=== PATIENT | male | born 1945 | race Caucasian/White ===

== ENCOUNTER 2017-05-30 09:04 | Inpatient (IN) | payer MEDICARE ==
[~2017-05-30] VITALS: Ht 177.8 cm; Wt 74.0 kg
--- NOTE | ~2017-05-30 | HP ---
Unit #: [id number] #: [id number] Patient: DAVID CHRISTINE [id number] [address] [place], [place] [address] [id number] E MR#: [id number] NAME: DAVID CHRISTINE ROOM: Age: 71 Sex: M Admission Date: 05/30/2017 : 1945 Attending Physician: Mat Gallegos M.D. Primary Care Physician: Víctor Cast M.D. HISTORY AND PHYSICAL CHIEF COMPLAINT Fall and short of breath. HISTORY OF PRESENT ILLNESS The patient is a 71-year-old male with a past medical history of hypertension, hyperlipidemia, seizure disorder, and colon cancer, who presented to the emergency department for evaluation of the above. The patient states that he has not been feeling well for the past three to four days. He reports increasing shortness of breath and cough at baseline. He denies any fever, no chest pain, and no night sweats. He has lost more than 100 pounds in the past five years that he attributes to "eating better." He denies any vomiting or diarrhea. This morning, he states that he fell on his back porch. He initially thought that he "slipped." He landed on his right hip. He denies hitting his head and denies any loss of consciousness. He was unable to get up. In the emergency department, initial pulse and blood pressure were 87 and 89/53, respectively, and oxygen saturation was 93% on five liters. Multiple imaging studies were done and showed diffuse skeletal metastatic disease. There is also a lung mass concerning for possible metastatic disease. There is also a possible focal area of infection in the lung. He is being admitted to [facility] for evaluation and further treatment. PAST MEDICAL HISTORY 1. Hospitalized at [facility] about five years ago for colon cancer. He underwent partial colectomy. He did not have chemotherapy or radiation. 2. Prostate cancer is listed on the ER triage sheet. However, the patient denies. 3. Hypertension. 4. Hyperlipidemia. 5. Seizure disorder, maintained on Keppra. The patient states that his seizure was more than a year ago. PAST SURGICAL HISTORY 1. Partial colectomy for colon cancer. 2. Prostatectomy. Again, the patient is not clear on this part of his medical history. SOCIAL HISTORY The patient lives with his . He smokes a pack of cigarettes daily. He has a history of drinking 12-18 beers daily but states that he Unit #: [id number] #: [id number] Patient: DAVID CHRISTINE currently is drinking three to four beers daily with the last drink being two days prior to admission. He denies illicit drug use. He is retired from construction. He walks without assistance. His code status is a Full Code. FAMILY HISTORY Notable for his mother having lung cancer. ALLERGIES No known allergies. HOME MEDICATIONS 1. Zocor 20 mg at bedtime. 2. Naproxen 500 mg b.i.d. p.r.n. 3. Norvasc 10 mg daily. 4. Keppra 500 mg twice daily. 5. Aspirin 81 mg daily. REVIEW OF SYSTEMS A complete review of systems is negative except as indicated in the History of Present Illness. The patient denies ever being told he has heart failure. He denies ever having a heart attack or a stroke. He denies any blood in the stool or black tarry stool. PHYSICAL EXAMINATION VITAL SIGNS: Temperature is 97.9, pulse 87, respirations 16, blood pressure 89/53, and oxygen saturation is 93% on 5 liters. GENERAL: Patient is a cachectic, somewhat chronically ill-appearing male who is awake, alert, and in no acute distress. HEENT: Head is atraumatic. Dentition is poor. NECK: Supple. Trachea is midline. CARDIOVASCULAR: Regular rate and rhythm. LUNGS: A few scattered wheezes and crackles. Breathing is not labored. ABDOMEN: Soft and nontender with bowel sounds present in all four quadrants. EXTREMITIES: The right hip is tender to palpation. There is no pedal edema. NEUROLOGIC: Patient is oriented x3. He knows the year. He is unable to tell me the month. He states that he does not keep track of dates. PSYCHIATRIC: Mood and affect are normal. Patient is cooperative. SKIN: Skin of examined areas is warm and dry. DIAGNOSTIC STUDIES LABORATORY: Comprehensive metabolic panel notable for a sodium of 131, alkaline phosphatase 563, and albumin 3.3. Troponin is less than 0.05. INR is 1.1. Lactic acid is 1. Complete blood count notable for hemoglobin and hematocrit of 9.1 and 27.8, respectively, and platelets are 80,000. BNP is 47. CPK is 239. IMAGING: Pelvis x-ray shows sclerotic density over the left lesser trochanter measuring 4.4 cm with a smaller area over the right lesser trochanter concerning for metastatic disease. Sclerotic density in the left parasymphyseal region. Horizontal lucency in the medial right acetabulum. Fracture cannot be excluded. Chest x-ray shows new bilateral diffuse interstitial change with moderate left pleural effusion likely representing congestive heart failure. Possible spiculated density in the left upper lung. CT of the chest with contrast shows new moderate left pleural effusion and small right pleural effusion with right basilar Unit #: [id number] #: [id number] Patient: CHRISTINE,DAVID atelectasis. Left upper lobe shows airspace density concerning for pneumonia. There is also a 1.5 x 1.2 cm well-circumscribed soft tissue nodule in the medial superior segment, left lower lobe, concerning for infection versus metastatic or primary lung carcinoma. Diffuse emphysematous changes are noted. Sclerotic lesions and multiple compression deformities are noted in the thoracic spine concerning for diffuse metastatic disease to the bone. CT of the abdomen and pelvis shows no acute visceral abnormality in the abdomen or pelvis. Diffuse mottled mixed lucent and sclerotic change throughout all of the visualized bones of the lumbar spine, pelvis, and hips. The patient does have displaced fractures of the right superior and inferior pubic rami. There is wedging of the L1 vertebral body that could be pathologic and indeterminate in age. CT of the lumbar spine shows widely disseminated skeletal metastatic lesions. CT of the thoracic spine shows sclerosis and lucency throughout the visualized skeleton concerning for metastatic disease. ASSESSMENT The patient is a 71-year-old male with: 1. Lung mass concerning for pneumonia versus metastatic disease. 2. Diffuse skeletal metastatic disease. 3. Fractures of the right superior and inferior pubic rami. 4. Compression fractures of the thoracic spine. 5. Bilateral pleural effusions. The patient denies any history of congestive heart failure. BNP is 47. 6. Chronic obstructive pulmonary disease with continued tobacco abuse. 7. Hyponatremia. The patient's sodium is 131. It has been as low as 126 on June 10, 2014. 8. Hypertension. The patient's blood pressure has been running in the 90s systolic in the emergency department. It is currently 102/63. 9. Hyperlipidemia. 10. Normocytic anemia. The patient's hemoglobin is 9.1 today. It has previously been normal. He denies any blood in the stool or black tarry stool. 11. Thrombocytopenia. The patient's platelet count is 80,000. It has previously been normal. 12. History of colon cancer, status post partial colectomy. 13. Alcohol abuse with history of drinking 12-18 beers daily. The patient states that he currently drinks three to four beers daily with last drink being two days prior to admission. 14. Tobacco abuse. 15. Seizure disorder maintained on Keppra with last seizure being more than a year ago. 16. Mildly elevated CPK (239). 17. Elevated alkaline phosphatase likely related to skeletal metastasis. PLAN 1. Admit to intermediate level. 2. Regular diet if passes bedside swallow. 3. Blood cultures x2. 4. Sputum culture and sensitivity. 5. Supplemental oxygen. 6. Rocephin IV and azithromycin IV pending further workup. 7. Procalcitonin level. 8. P.r.n. DuoNebs. 9. Consult Dr. Angélica Green regarding lung mass. 10. Bedrest. 11. Fall precautions. Unit #: [id number] #: [id number] Patient: DAVID CHRISTINE 12. Consult Dr. Zamorano regarding diffuse skeletal metastatic disease. 13. A 2D echo. 14. Serial cardiac enzymes. 15. Hemoccult stool. 16. Iron studies, B12, and folate. 17. Repeat hemoglobin later this evening. 18. Monitor blood pressure closely. 19. Hold antihypertensive medications since the blood pressure has been running low. 20. Folic acid, thiamine, and multivitamin daily. 21. Alcohol withdrawal protocol. 22. P.r.n. Tylenol. 23. P.r.n. Zofran. 24. Check magnesium level. 25. Potassium/magnesium protocol. 26. Repeat labs in the morning including magnesium and CPK. 27. Hold statin due to mildly elevated CPK. 28. Hold aspirin due to anemia. 29. Additional workup and consultants based on above. 30. Regarding code status, the patient is a Full Code. 1. Dictated by Emilia Alcala M.D. LUKAS/octavio TD: 05/30/2017 16:39 JOB #: [id number] HISTORY AND PHYSICAL Page 1 of 1 X Emilia Alcala MD HISTORY AND PHYSICAL
--- NOTE | ~2017-05-30 | CT55 ---
[facility] A Service of [facility] & [facility] RADIOLOGY TEXT RESULTS PATIENT: DAVID CHRISTINE LOCATION: [facility] : [birth year] UNIT #: [id number] AGE: [address]: Mat Jorge MD SEX: M ORDER DR: [id number] [facility] [address] [place], [place] [address] [id number] MR#: [id number] Acc #: [id number] NAME: DAVID CHRISTINE : 1945 SEX: M STUDY DATE/TIME: 05/30/2017 11:27 UNIT: [facility] ROOM: STUDY DESCRIPTION: CT Chest W Con Attending Physician: Mat Jorge M.D. Ordering Physician: Mat Jorge M.D. Primary Care Physician: Víctor Cast M.D. MEDICAL IMAGING REPORT This report is preliminary unless electronic signature is present EXAM CT chest with contrast 05/30/2017 1127 hours HISTORY Patient slipped and fell today with shortness of air, right-sided pelvic and hip pain today. History of colon and prostate cancer. COMPARISON CT chest 06/13/2014 and chest x-ray 05/30/2017. TECHNIQUE Dynamic helical CT images were obtained from the thoracic inlet through the adrenal glands. Sagittal and coronal reconstructions were performed. Contrast was Isovue-370 100 mL IV. Total exam DLP for the chest, abdomen and pelvis CT today is 766 mGy-cm. This CT examination was performed with one or more of the following radiation dose reduction techniques: automatic exposure control, adjustment of mA and/or kV according to patient size, and iterative reconstruction. FINDINGS Images through the thoracic inlet demonstrate no thyroid mass or supraclavicular adenopathy. Images through the chest demonstrate normal pulmonary arteries, aorta, cardiac chambers. There is no pericardial fluid. The esophagus is normal. The patient has a moderate dependent left effusion and a small dependent right effusion. Effusions are new from 2013. Lung window images demonstrate diffuse underlying centrilobular emphysema. The upper lungs are clear. The left suprahilar density seen on chest film does correspond to spurring at the anterior first rib. There is a 1.5 x 1.2 cm noncalcified fairly well-circumscribed soft tissue nodule in the medial aspect superior segment left lower lobe on image 27 not seen on [facility] A Service of [facility] & [facility] RADIOLOGY TEXT RESULTS PATIENT: DAVID CHRISTINE LOCATION: [facility] : [birth year] UNIT #: [id number] AGE: [address]: Mat Jorge MD SEX: M ORDER DR: prior CT. While this could represent infection, the presence of metastasis or primary lung carcinoma could have this appearance. There is peribronchiolar wall thickening in the left lower lobe with airspace density abutting the pleural effusion. These findings could represent pneumonia or atelectasis. There is bandlike density at the right lung base with mild peribronchiolar wall thickening. Right basilar atelectasis is favored. Please see CT abdomen and pelvis report for findings below the hemidiaphragms. Bone window images are diffusely abnormal. The bones are diffusely mottled with sclerotic and lucent areas. There are multiple compression deformities in the thoracic spine new from 06/13/2014. Findings are most consistent with diffuse metastatic disease to bone. There is diffuse rib involvement, clavicles, sternum and manubrium. Abnormal appearance to the left greater than right scapula. IMPRESSION 1. There is new moderate left pleural effusion and small right pleural effusion with right basilar atelectasis. In the left lower lobe, there is airspace density which I favor represents pneumonia although a component of atelectasis is likely present. There is a 1.5 x 1.2 cm fairly well-circumscribed noncalcified soft tissue nodule in the medial superior segment left lower lobe not present on 06/13/2014. This could represent a focus of infection however metastasis or primary lung carcinoma could have this appearance. 2. There is diffuse emphysematous change with calcified granulomata. There is no spiculated density in the left upper lobe to correspond to the density seen on the chest x-ray today. That finding does correspond to spurring at the anterior first rib. 3. Diffusely abnormal appearance to the bones with mixed lucent and sclerotic lesions and multiple compression deformities in the thoracic spine. All of these bone changes are new from the most recent available chest CT of 06/13/2014 and are most consistent with diffuse metastatic disease to bone. STAT * RESULT Dictated by... Paola Corey M.D. THIS IS AN ELECTRONICALLY VERIFIED REPORT Paola Corey M.D. at 05/30/2017 2:31 PM HELEN/deidra [facility] A Service of [facility] & [facility] RADIOLOGY TEXT RESULTS PATIENT: DAVID CHRISTINE LOCATION: [facility] #: [id number] : [birth year] UNIT #: [id number] AGE: [address]: Mat Jorge MD SEX: M ORDER DR: TD: 05/30/2017 12:25 JOB #: [id number] MEDICAL IMAGING REPORT Page 1 of 1 COPY
--- NOTE | ~2017-05-30 | CT98 ---
[facility] A Service of [facility] & [facility] RADIOLOGY TEXT RESULTS PATIENT: DAVID CHRISTINE LOCATION: [facility] 576-01 : [birth year] UNIT #: [id number] AGE: [address]: Sebastian Park MD SEX: M ORDER DR: [id number] [place] [id number] [facility]. [place], [place] [address] [id number] I MR#: [id number] Acc #: [id number] NAME: DAVID CHRISTINE : 1945 SEX: M STUDY DATE/TIME: 05/30/2017 11:27 UNIT: [facility] ROOM: 82388 STUDY DESCRIPTION: CT Lumbar Spine Wo Cont Attending Physician: Emilia Alcala M.D. Ordering Physician: Mat Gallegos M.D. Primary Care Physician: Víctor Cast M.D. MEDICAL IMAGING REPORT This report is preliminary unless electronic signature is present EXAM CT lumbar spine without contrast HISTORY Slipped and fell today, complains of right-sided pelvic and hip pain mid to lower back pain. History of prostate and colon cancer. COMPARISON CT abdomen and pelvis 06/06/[address] thoracic spine 05/30/2017. TECHNIQUE Thin section axial images performed through the lumbar spine following IV contrast which was performed in conjunction with CT the abdomen and pelvis. This CT exam was performed with one or more of the following radiation dose reduction techniques: automatic exposure control, adjustment of mA and/or kV according to patient size, and iterative reconstruction. FINDINGS The examination demonstrates mixed lytic sclerotic lesions throughout the visualized spine and pelvis consistent with widely disseminated skeletal metastases. This may represent a combination of sclerotic and lytic metastases or potentially sclerotic metastases superimposed on diffuse osteopenia. There are mild compression fracture deformities of T12 and L1 with approximately 20% loss of the superior endplate height of the L1 and at T12. No retropulsed fragment and no definite spinal canal compromise on this non myelographic CT. Visualized SI joints unremarkable. Partially visualized is the patient's right inferior pubic ramus fracture. Small bilateral pleural effusions left greater than right with compressive atelectasis. IMPRESSION 1. CT findings compatible with widely disseminated skeletal metastases. STS. [facility] A Service of [facility] & [facility] RADIOLOGY TEXT RESULTS PATIENT: DAVID CHRISTINE LOCATION: [facility] 576-01 : [birth year] UNIT #: [id number] AGE: [address]: Sebastian Park MD SEX: M ORDER DR: 2. Compression fracture deformities of T12 and L1 with approximately 20% loss of vertebral body height. These may represent pathologic fractures due to the patient's widely disseminated disease. No retropulsed fragment and no significant spinal canal stenosis or compromise seen on this non myelographic CT. Dictated by... Jaime Koroma M.D. THIS IS AN ELECTRONICALLY VERIFIED REPORT Jaime Koroma M.D. at 06/01/2017 5:11 PM Dandre TD: 05/30/2017 18:22 JOB #: [id number] MEDICAL IMAGING REPORT Page 1 of 1 COPY
--- NOTE | ~2017-05-30 | CO ---
Unit #: [id number] #: [id number] Patient: DAVID CHRISTINE [id number] [address] [place], [place] [address] [id number] I MR#: [id number] NAME: DAVID CHRISTINE ROOM: 576 Age: 71 Sex: M Admission Date: 05/30/2017 : 1945 Attending Physician: Sebastian Park M.D. Primary Care Physician: Víctor Cast M.D. Consultation Date: 05/30/2017 CONSULTATION REPORT REASON FOR CONSULT Abnormal CAT scan. HISTORY OF PRESENT ILLNESS This is a pleasant 71-year-old male with past medical history significant for hypertension, hyperlipidemia, seizure disorder, colon cancer who presented to the emergency room for evaluation of fall and shortness of breath. The patient is a poor historian and per his who is at bedside, the patient is with a history of prostate cancer status post prostate removal who lost followup with his oncologist due to insurance problem, who presented to the emergency room after he fell at home which he related to tripping on something. The patient has been coughing with sputum production. No fever, but he had some chills. The patient has been losing weight he stated over the last few years but his is more concerned that it is more pronounced lately. The patient also had poor oral intake. No nausea, vomiting, or diarrhea. PAST MEDICAL HISTORY 1. Colon cancer, status post partial colectomy. 2. Prostate cancer. 3. Hypertension. 4. Hyperlipidemia. 5. Seizure disorder. PAST SURGICAL HISTORY 1. Partial colectomy. 2. Prostatectomy. SOCIAL HISTORY The patient lives with his . He smokes currently a pack of cigarettes daily and he smoked for extended period of time, but he could not tell how many years. He has a history of drinking 12-18 beers daily but currently he cut down to three to four. No history of illicit drug abuse. He is retired from construction. FAMILY HISTORY Lung cancer. ALLERGIES No known drug allergies. HOME MEDICATIONS 1. Zocor. 2. Naproxen. Unit #: [id number] #: [id number] Patient: DAVID CHRISTINE 3. Norvasc. 4. Keppra. 5. Aspirin. REVIEW OF SYSTEMS A 12-point review of systems was obtained and was negative except for what was mentioned in the HPI. PHYSICAL EXAMINATION GENERAL: The patient is ill appearing and cachectic. VITAL SIGNS: Temperature 98.3, pulse 69, respiratory rate 16, O2 saturation 93% on 5 L nasal cannula. HEENT: Atraumatic, normocephalic. PERRLA. EOMI. NECK: Supple. No JVD. No lymphadenopathy. CHEST: Bilateral fine rhonchi. HEART: S1, S2. No murmur, gallops, or rubs. ABDOMEN: Soft, nontender. Bowel sounds are positive. No hepatosplenomegaly. EXTREMITIES: No edema or cyanosis. SKIN: No rashes. CENTRAL NERVOUS SYSTEM: Awake, alert, oriented x3. No focal motor/sensory deficits. DIAGNOSTIC STUDIES LABORATORY: Creatinine 1, sodium 131. White blood count 5.7, hemoglobin 8.5, platelets 80,000. IMAGING: CT chest and abdomen/pelvis were all reviewed by me and reflected in the plan. ASSESSMENT 1. Acute hypoxic respiratory failure. 2. Acute exacerbation of chronic obstructive pulmonary disease. 3. Community-acquired pneumonia. 4. Lung nodule, rule out malignancy. 5. Diffuse skeletal metastatic disease. 6. Hyponatremia. 7. Hypertension. 8. Thrombocytopenia. 9. Alcohol abuse. 10. History of colon cancer. 11. History of prostate cancer. 12. Seizure disorder. PLAN 1. Patient is chronically ill appearing with cachectic appearance. 2. Will proceed with thoracentesis plus/minus CT-guided biopsy of the left lung nodule. 3. Will obtain also biopsy of the mass in his right armpit to rule out metastatic disease. 4. IV steroids, bronchodilator, and mucolytics. 5. Antibiotics. 6. Gentle IV hydration. 7. CIWA protocol. 8. Deep venous thrombosis/gastrointestinal prophylaxis. Unit #: [id number] #: [id number] Patient: DAVID CHRISTINE Dictated by... Edward Phelps TD: 05/31/2017 10:05 JOB #: [id number] CONSULTATION REPORT Page 1 of 1 X MAXIMO CLARK MD CONSULTATION REPORT
--- NOTE | ~2017-05-30 | CR72 ---
[facility] A Service of [facility] & [facility] RADIOLOGY TEXT RESULTS PATIENT: DAVID CHRISTINE LOCATION: [facility] : 47 UNIT #: [id number] AGE: [address]: Mat Jorge MD SEX: M ORDER DR: [id number] [facility] [address] [place], [place] [address] [id number] E MR#: [id number] Acc #: [id number] NAME: DAVID CHRISTINE : 1945 SEX: M STUDY DATE/TIME: 05/30/2017 09:40 UNIT: [facility] ROOM: STUDY DESCRIPTION: CR Chest Single View Portable Attending Physician: Mat Jorge M.D. Ordering Physician: Mat Jorge M.D. Primary Care Physician: Víctor Cast M.D. MEDICAL IMAGING REPORT This report is preliminary unless electronic signature is present EXAM Chest portable, 05/30/2017, 0940 hours. CLINICAL HISTORY 71-year-old man who fell this morning. Patient complains of pelvic pain and shortness of air. COMPARISON CT chest and chest x-ray 06/2014, FINDINGS Upright view of the chest demonstrates normal heart size with stable tortuous atherosclerotic aorta. There is interstitial change in the mid and lower lungs bilaterally suggesting edema. There is a moderate left effusion. These findings are new from June 2014. There are old healed left posterior sixth and seventh rib fractures unchanged from 06/13/2014. No definite acute bone lesions are seen. IMPRESSION 1. There is new bilateral diffuse interstitial change in the lungs with a moderate left pleural effusion most likely representing congestive heart failure. 2. There are old healed left posterior rib fractures unchanged from a CT chest 06/13/2014. No definite acute bone lesions are seen. 3. A question is raised of a spiculated density in the left upper lung lateral to the top of the aortic arch. I believe this is most likely related to spurring at the anterior first rib; however, it does appear more prominent than on prior chest film and prior CT scan. Suggest followup two-view chest film. If the finding persists, a chest CT would be warranted. STAT * RESULT 1. [facility] A Service of [facility] & [facility] RADIOLOGY TEXT RESULTS PATIENT: DAVID CHRISTINE [facility] [id number] : [birth year] UNIT #: [id number] AGE: [address]: Mat Jorge MD SEX: M ORDER DR: Dictated by... Paola Corey M.D. THIS IS AN ELECTRONICALLY VERIFIED REPORT Paola Corey M.D. at 05/30/2017 2:31 PM HELEN/akhil TD: 05/30/2017 10:21 JOB #: [id number] MEDICAL IMAGING REPORT Page 1 of 1 COPY
--- NOTE | ~2017-05-30 | A ---
[facility] Nutrition Therapy DATE: 05/31/17 Patient: DAVID CHRISTINE Physician: ASIA Address: [address] [facility] Room/Bed: [address] [place] [address], Zip: [place] [address] Admit Date: 05/30/17 Date of : [birth year] Height: 5 10 Weight: 118 53.52 NUTRITIONAL ASSESSMENT: REASON: Low BMI 71 y/o male admitted for fall + SOB PMH: colon cancer, HTN, HLD, seizure disorder Anthropometrics: ht: 5'10" wt: 117# (53 kg) BMI 16, 70%IBW Labs: Na+ 129, Cl- 98, BUN 27, Alb 3.1, ALT 9 Meds: Keppra, NaCl, zofran, folic acid I/O & Bowel function: 625/275. BM 05/28 Skin Integrity: No issues, no edema. Estimated Nutrition Needs: Increased 2' Dx of cancer, low BMI, unintentional weight loss, per pt report Assessment: Chart reviewed, events noted. Pt seen for low BMI of 16. RD product management intern visited pt at bedside, also at bedside. Pt has been NPO for prodecure but diet will be advanced now that procedure is complete. Pt reports having a good appetite, stating he is "starving" now. Pt and states he eats well at home. Pt reports a weight of ~150# 6 months ago, noting a ~30# weight loss (20%). Pt claims this is due to his cancer. RD product management intern encouraged adequate intake, pt was agreeable to chocolate ensure BID + Magic Cup with dinner. Pt had no questions at this time, RD to follow. Dx: Underweight r/t Dx of cancer, PMH AEB pt reported 30# weight loss past 6 months (20% BW) Intervention: 1. Regular diet once diet advances 2. Ensure + magic cup once diet adavnces Monitoring, Evaluation and Goals: 1. Weight; prevent unintentional weight loss; promote gradual weight gain towards healthy BMI 2. Intake; consume/tolerate >50% of meals and supplements 3. Labs; WNL Recommendations: 1. Once diet is advanced, recommend regular diet + Ensure Enlive Chocolate BID + Magic Cup [facility] Nutrition Therapy DATE: 05/31/17 Patient: DAVID CHRISTINE Physician: ASIA Address: [address] [place] [address] Room/Bed: [address] [place] [address], Zip: [place] [address] Admit Date: 05/30/17 Date of : [birth year] Height: 5 10 Weight: 118 53.52 with dinner. 2. Encourage adequate PO intake. RD will f/u per protocol as pt is at mild/moderate nutrtitional risk. Respectfully, REMY SNEED, internet consultant Genaro Lerma MS, RD, LD [employer] [facility] cc: client file
--- NOTE | ~2017-05-30 | CO ---
Unit #: [id number] #: [id number] Patient: DAVID CHRISTINE [id number] [address] [place], [place] [address] [id number] I MR#: [id number] NAME: DAVID CHRISTINE ROOM: 576 Age: 71 Sex: M Admission Date: 05/30/2017 : 1945 Attending Physician: Jhon Tripathi M.D. Primary Care Physician: Víctor Cast M.D. 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 CHIEF COMPLAINT Right hip pain and right leg dysfunction following fall. HISTORY OF PRESENT ILLNESS Mr. Christine is a 71-year-old gentleman who suffers from a seizure disorder, as well as prostate cancer. Patient states that he was at home, and he fell on his right side and has had difficulty moving his right leg since that occurred. Patient states that he has lost over 100 pounds since he was diagnosed with prostate cancer. He states that he had surgical resection by Dr. Lopez which was reportedly done at [facility], though the patient states he remembers having it at [facility]. He states that he did not have significant followup evaluation and was surprised to be told he had metastatic disease during this admission. The patient has had multiple CT scans which have demonstrated widespread metastatic bony disease, as well as a solitary lung nodule. In addition, there is evidence of a minimally displaced fracture of both the inferior and superior pubic ramus on the right side. Patient has discussed his condition with Dr. Cazares. Patient has had no antineoplastic therapy and would likely benefit greatly from antiandrogen therapy, as well as nutritional supplementation. I have been asked to see this gentleman regarding localized therapy. RECOMMENDATIONS Mr. Christine is certainly a candidate for localized radiotherapy to the inferior and superior pubic ramus on the right side. I would plan some 30 Gy/10 fractions to this region. This could easily be done as an outpatient as this is not an emergent procedure. I have asked the floor to notify me upon discharge. Patient lives very close near [facility], and we could even provide transportation if necessary, though he states he has a car and his drives. He is clearly not in a condition to drive at this time. The various side effects and complications associated with treatment were discussed in detail with the patient. He understands and accepts these things. We look forward to participating in his care. PAST MEDICAL HISTORY 1. Hypertension. 2. Hyperlipidemia. 3. Seizure disorder, last seizure over a year ago. 4. Radical prostatectomy between five and eight years ago. Unit #: [id number] #: [id number] Patient: DAVID CHRISTINE 5. Nutrition status is very poor. Patient has lost 100 pounds. 6. Partial colectomy. MEDICATIONS 1. Zocor. 2. Naprosyn. 3. Norvasc. 4. Keppra. 5. Aspirin. ALLERGIES No known drug allergies. NUTRITIONAL STATUS Again, quite poor. PAIN MANAGEMENT Currently a 3 to 4. FAMILY HISTORY History of lung cancer. SOCIAL HISTORY Patient lives with his . He currently smokes a pack of cigarettes a day and has done so for many years. He has a history of drinking up to two six-packs of beer a day but has cut down to three or four beers a day. He denies illicit drug use. He is retired from construction work. REVIEW OF SYSTEMS The patient does report history of seizure disorder which is why he is on Keppra. He states it has been over a year since he has had a seizure. He states he has difficulty moving his right leg which feels somewhat weak. He has pain specifically in the right groin on movement and weightbearing. PHYSICAL EXAMINATION VITAL SIGNS: Temperature 98, pulse 58, and respirations 18. Patient is currently on 3 liters O2 with O2 saturation 94%. Blood pressure 104/64. Height 5 feet 10, weight 158. BMI is 16. HEENT: Pupils equal, round, and reactive to light and accommodation. Extraocular movements within normal limits. Patient has somewhat lethargic speech. He has very poor dentition. NECK: Without gross adenopathy. Supraclavicular fossa unremarkable as well. LUNGS: Extremely distant breath sounds. CARDIOVASCULAR: Regular rate and rhythm. ABDOMEN: Soft and nontender. No evidence of mass. EXTREMITIES: Without edema. Patient does have limited range of motion of the right lower extremity of approximately 20-30 degrees. He has full range of motion on the left side. He points to the right groin as the source of his pain. GENITAL/RECTAL: Examinations not performed. NEUROLOGY: Sensory is intact. Weakness on the right side is noted. DIAGNOSTIC STUDIES LABORATORY: Glucose 97, BUN 19, creatinine 0.6, sodium 130, potassium 4, and albumin 3.1. Liver enzymes markedly elevated with alkaline phosphatase 498. Alcohol level was markedly elevated on admission as well. WBC 5.5, hemoglobin 7.6, and platelet count 74,000. PSA level both Unit #: [id number] #: [id number] Patient: DAVID CHRISTINE free and total are pending at this time. Approximately 45 minutes spent discussing case with patient. Dictated by... Deepak Hays M.D. ROSETTA/octavio TD: 06/03/2017 22:00 JOB #: [id number] CC: Edward Soriano M.D. Robert B. Hendren, M.D. CONSULTATION REPORT Page 1 of 1 X Deepak Hays MD X CONSULTATION REPORT
--- NOTE | ~2017-05-30 | EKG ---
PATIENT: DAVID CHRISTINE UNIT #: [id number] Ventricular Rate: 82 BPM Atrial Rate: 82 BPM P-R Interval: 198 ms QRS Duration: 84 ms Q-T Interval: 352 ms QTC Calculation(Bezet): 411 ms P [place]: 60 degrees Calculated R [place]: 64 degrees Calculated T [place]: 31 degrees Diagnosis Line: Normal sinus rhythm with sinus arrhythmia Diagnosis Line: Low voltage QRS Diagnosis Line: Borderline ECG Diagnosis Line: When compared with ECG of 12-JUN-2014 22:01, Diagnosis Line: No significant change was found Diagnosis Line: Confirmed by ANGEL LONDONO MD ([id number]) on Diagnosis Line: 05/31/2017 7:32:21 AM INTERPRETING MD: SPRING YANCEY
--- NOTE | ~2017-05-30 | CT2 ---
[facility] A Service of [facility] & [facility] RADIOLOGY TEXT RESULTS PATIENT: DAVID CHRISTINE LOCATION: [facility] : [birth year] UNIT #: [id number] AGE: [address]: Mat Jorge MD SEX: M ORDER DR: [id number] [facility] [address] [place], [place] [address] [id number] MR#: [id number] Acc #: [id number] NAME: DAVID CHRISTINE : 1945 SEX: M STUDY DATE/TIME: 05/30/2017 11:27 UNIT: [facility] ROOM: STUDY DESCRIPTION: CT Abd and Pelv W Cont Attending Physician: Mat Jorge M.D. Ordering Physician: Mat Jorge M.D. Primary Care Physician: Víctor Cast M.D. MEDICAL IMAGING REPORT This report is preliminary unless electronic signature is present EXAM CT abdomen and pelvis with contrast 05/30/2017 1127 hours HISTORY 71-year-old man with prior history of colon cancer and prostate cancer who fell today. Patient complains of pelvic and right hip pain, shortness of air, [id number] back pain today. COMPARISON Pelvis film 05/30/2017. CT angiogram of the chest 06/13/2014. No prior CT of the abdomen or pelvis available. TECHNIQUE Dynamic helical CT images were obtained from the lung bases through the pubic symphysis. Sagittal and coronal reconstructions were performed. Contrast was Isovue-370 100 mL IV. Total exam DLP for the chest, abdomen and pelvis CT is 766 mGy-cm. This CT examination was performed with one or more of the following radiation dose reduction techniques: automatic exposure control, adjustment of mA and/or kV according to patient size, and iterative reconstruction. FINDINGS Please see the chest CT report for findings above the hemidiaphragms. There are bilateral pleural effusions and bibasilar airspace changes. Images through the abdomen demonstrate a normal-sized liver and spleen. There is a tiny cyst in the caudate lobe of the liver unchanged from 2013. There is no evidence of liver metastasis. The spleen, pancreas, gallbladder and bile ducts are normal. The adrenal glands are normal. The kidneys enhance normally without evidence of mass. There is no adenopathy or ascites. The stomach, small bowel are normal. There is moderate stool in the colon. [facility] A Service of [facility] & [facility] RADIOLOGY TEXT RESULTS PATIENT: DAVID CHRISTINE [id number] [birth year] UNIT #: [id number] AGE: [address]: Mat Jorge MD SEX: M ORDER DR: CT pelvis demonstrates a normal appearance to the bladder. There is moderate stool in the rectum. No suspicious calcifications. There are diffuse atherosclerotic calcifications of the aorta and its branches. Bone window images demonstrate diffuse mixed lucent and sclerotic changes throughout all of the bones including the lumbar spine, lower ribs, pelvis, sacrum, iliac wings, acetabuli and proximal femurs. There is a fracture through a lucent area in the right inferior ramus which appears acute. There is fracture through the right superior ramus also through a lucent area. This appears acute. The femoral head and neck on the right side is intact. No definite left hip fracture. There is disc height loss at L5-S1. There is mild wedging of L1 which appears to be new from CT chest 06/13/2014. IMPRESSION 1. There is no acute visceral abnormality in the abdomen or pelvis. There is no liver metastasis. There is a tiny cyst in the caudate lobe unchanged from 06/13/2014. 2. There is moderate to increased stool throughout the colon and rectum. 3. There is diffuse mottled mixed lucent and sclerotic change throughout all of the visualized bones of the lumbar spine, pelvis and hips. Patient does have acute minimally displaced fractures of the right superior and inferior pubic rami. There is no definite acetabular fracture or hip fracture. 4. There is mild wedging of the L1 vertebral body which could be pathologic. This is of indeterminate age but is not seen on CT chest 06/13/2014. STAT * RESULT Dictated by... Paola Corey M.D. THIS IS AN ELECTRONICALLY VERIFIED REPORT Paola Corey M.D. at 05/30/2017 2:31 PM HELEN/deidra TD: 05/30/2017 12:35 JOB #: [id number] MEDICAL IMAGING REPORT Page 1 of 1 COPY
--- NOTE | ~2017-05-30 | CR71 ---
[facility] A Service of [facility] & [facility] RADIOLOGY TEXT RESULTS PATIENT: DAVID CHRISTINE LOCATION: [facility] 576-01 : [birth year] UNIT #: [id number] AGE: [address]: Sebastian Park MD SEX: M ORDER DR: [id number] [facility] [address] [place], [place] [address] [id number] I MR#: [id number] Acc #: [id number] NAME: DAVID CHRISTINE : 1945 SEX: M STUDY DATE/TIME: 05/31/2017 08:12 UNIT: [facility] ROOM: [facility] STUDY DESCRIPTION: CR Chest Single View Attending Physician: Sebastian Park M.D. Primary Care Physician: Víctor Cast M.D. MEDICAL IMAGING REPORT This report is preliminary unless electronic signature is present EXAM Chest portable, 05/31/2017 08:12 hours HISTORY Left pleural effusion status post thoracentesis today. Evaluate for pneumothorax. COMPARISON Chest CT 05/30/2017 and chest x-ray 05/30/2017. FINDINGS Portable upright chest demonstrates the patient to be significantly rotated to the left. There is decrease in the left pleural effusion. There is no definite pneumothorax. There is hazy bibasilar parenchymal density similar to yesterday's film. IMPRESSION Limited film due to significant leftward rotation of the patient. There is decrease in the left pleural effusion. No pneumothorax is seen. Dictated by... Paola Corey M.D. THIS IS AN ELECTRONICALLY VERIFIED REPORT Paola Corey M.D. at 05/31/2017 2:31 PM Shyann TD: 05/31/2017 10:52 JOB #: [id number] MEDICAL IMAGING REPORT Page 1 of 1 COPY
--- NOTE | ~2017-05-30 | CT122 ---
[facility] A Service of [facility] & [facility] RADIOLOGY TEXT RESULTS PATIENT: DAVID CHRISTINE LOCATION: [facility] 576-01 : [birth year] UNIT #: [id number] AGE: [address]: Sebastian Park MD SEX: M ORDER DR: [id number] [place] [id number] [facility]. [place], [place] [address] [id number] I MR#: [id number] Acc #: [id number] NAME: DAVID CHRISTINE : 1945 SEX: M STUDY DATE/TIME: 05/30/2017 11:27 UNIT: [facility] ROOM: [id number] STUDY DESCRIPTION: CT Thoracic Spine Wo Cont Attending Physician: Emilia Alcala M.D. Ordering Physician: Mat Gallegos M.D. Primary Care Physician: Víctor Cast M.D. MEDICAL IMAGING REPORT This report is preliminary unless electronic signature is present EXAM CT thoracic spine HISTORY 71-year-old male slipped and fell today; complains of mid and lower back pain onset today. The patient has a history of prostate and colon cancer. COMPARISON CT chest, 05/30/2017 TECHNIQUE Thin section axial images performed through the thoracic spine without contrast. Multiplanar reconstructed images were reviewed at a workstation. This CT exam was performed with one or more of the following radiation dose reduction techniques: automatic exposure control, adjustment of mA and/or kV according to patient size, and iterative reconstruction. FINDINGS Examination demonstrates patchy multifocal areas of sclerosis throughout the thoracic spine, highly concerning for skeletal metastases, possibly on the basis of the patient's prostate or colon cancer. There is extensive compression fracture deformities T8 and T9 and along the superior endplate of T12. Probable compression fracture deformity of T7 as well. There is over 40% compression fracture deformity of the anterior aspect of T8 as well as mild approximately 20% compression deformity of T7 and approximately 20% to 25% compression fracture deformity of T9. Minimal compression fracture deformity noted along T12 and also along the superior endplate of L1. No retropulsed fragment. No definite spinal canal compromise though detail of the spinal canal somewhat limited on non myelographic CT. There is a 1.5 cm nodule noncalcified within the left lower lung may represent metastatic lesion. There is a small to moderate-sized left pleural effusion and a small right pleural effusion. STS. [facility] A Service of [facility] & [facility] RADIOLOGY TEXT RESULTS PATIENT: DAVID CHRISTINE LOCATION: [facility] 576-01 : [birth year] UNIT #: [id number] AGE: [address]: Sebastian Park MD SEX: M ORDER DR: Background parenchyma suggests emphysema and fibrosis. There are calcified mediastinal nodes compatible with prior granulomas disease. Extensive left lower lobe atelectasis and/or infiltrate. There is deformities along the dorsal spinous processes of T1, T2 and T3, which represent nondisplaced fractures. There is a nondisplaced fracture of the right transverse process of T7. Additional fracture also noted in the right lateral aspect of the transverse process of T8. IMPRESSION 1. Mixed foci of sclerosis and lucency throughout the visualized skeleton may represent a combination of sclerotic and lytic metastases or possibly sclerotic metastases superimposed on diffuse osteopenia. Again this appears to represent widely disseminated skeletal metastases, possibly related patient's prostate or colon cancer. 2. Multiple compression fractures most pronounced at T8 but also at T7, T9, T12 and L1 as detailed above. There is approximately 40-45% central anterior vertebral body height loss at T8 but no evidence of retropulsed fragment and no definite spinal canal compromise on this non myelographic CT. 3. Vertical fractures through the dorsal spinous processes of T1, T2 and T3 as well as right T7 and T8 transverse process fractures. 4. 1.5 cm nodule left lower lobe suspicious for metastatic disease. 5. Bilateral pleural effusions left greater than right with left basilar atelectasis and/or infiltrate and a small amount of right basilar atelectasis. This appears superimposed on background emphysema. Dictated by... Jaime Koroma M.D. THIS IS AN ELECTRONICALLY VERIFIED REPORT Jaime Koroma M.D. at 06/01/2017 5:11 PM ODILON/gama TD: 05/30/2017 18:13 JOB #: [id number] MEDICAL IMAGING REPORT Page 1 of 1 COPY
--- NOTE | ~2017-05-30 | CO ---
Unit #: [id number] #: [id number] Patient: DAVID CHRISTINE [id number] [address] [place], [place] [address] [id number] I MR#: [id number] NAME: DAVID CHRISTINE ROOM: 576 Age: 71 Sex: M Admission Date: 05/30/2017 : 1945 Attending Physician: Sebastian Park M.D. Primary Care Physician: Víctor Cast M.D. Consultation Date: 05/31/2017 CONSULTATION REPORT REASON FOR CONSULTATION Metastatic cancer, please evaluate. HISTORY OF PRESENT ILLNESS Mr. David Christine is a 71-year-old with a history of hypertension, hyperlipidemia, seizure disorder, and prostate cancer, who fell at home and presented to the emergency room with pain as well as with shortness of breathing. He has lost significant amount of weight losing more than almost 100 pounds in weight secondary to decreased appetite and weakness. He tells me in 2012 he was diagnosed with prostate cancer undergoing radical prostatectomy by Dr. Lopez at [facility] [place]. Because of insurance reasons, he has not followed up thereafter. Scans done following admission shows widespread bony metastatic disease as well as a nodule in the lung. It appears he has not yet been done. Mr. Christine tells me that since he did not follow up regularly with any physician, was not aware that he had metastatic prostate cancer, which is most likely. He has been progressively weaker in the last 6 months. Barely able to walk from bed to the bathroom and back. PAST MEDICAL HISTORY Prostate cancer diagnosed 5 years ago in 2012 as mentioned. There is no history of colon cancer as stated in the chart. Other medical include hypertension, hyperlipidemia, seizure disorder with last seizure more than a year ago. PAST SURGICAL HISTORY Includes radical prostatectomy. SOCIAL HISTORY Has not drunk alcohol for quite a few days for several months. Smokes about a pack a day, but has been trying to quit. He is and lives with his with whom he has been for 47 years. He has 4 adult children who live in [place] where he used to work before returning back to [place] 10 years ago. REVIEW OF SYSTEMS Fourteen point review of systems was taken. CONSTITUTIONAL: Progressive weight loss as discussed. EYES: Negative. EARS, NOSE, MOUTH, THROAT: Negative. CARDIOVASCULAR: Shortness of breathing. BACK: Had some back pain. MUSCULOSKELETAL: Generalized pain, but mostly in his back. GENITOURINARY: Prostate cancer. Unit #: [id number] #: [id number] Patient: DAVID CHRISTINE GASTROINTESTINAL: Negative. ALLERGIC/LYMPHATIC: Negative. SKIN: Negative. PSYCHIATRIC: Negative. LYMPHATIC: Negative. PHYSICAL EXAMINATION GENERAL: He is a thin, cachectic, elderly male, awake, alert, and oriented x3. VITAL SIGNS: Temperature 97.6, pulse rate is 95, respiratory rate is 18, blood pressure is 84/50, O2 saturation 92% on room air. HEENT: Pupils are equal and reactive well to light. He is pale, but not icteric. Mucous membranes are moist. NECK: Without JVD, thyromegaly. CARDIOVASCULAR: First and second heart sounds are heard and regular. No murmurs, gallops, or rubs. LUNGS: Chest expansion is symmetric bilaterally. Normal breath sounds. ABDOMEN: Soft, nontender. EXTREMITIES: Warm. Good pulses. No edema, cyanosis, or clubbing. NEUROLOGIC: He is awake, alert, and oriented x3 without any focal findings. DIAGNOSTIC STUDIES IMAGING STUDIES: Chest x-ray, single view, shows decrease in left pleural effusion. CT of the thoracic spine shows multiple areas of sclerosis with compression fractures at T8, T9, T7, and T12. There were also compression fractures of L1. CT of the chest and abdomen shows moderate left pleural effusion, a small right effusion, left suprahilar density. There is a 1.5 to 1.2 cm noncalcified well-circumscribed soft tissue nodule in the left upper lobe with diffuse mottling of sclerotic lucencies of his bones. LABORATORY RESULTS: Blood cultures are negative. Pleural fluid thoracentesis shows protein of 3.4, LDH is 87, albumin is 2.2. Complete metabolic panel shows a sodium of 129, BUN is 27, creatinine is 1, alkaline phosphatase is 498, albumin is 3.1, calcium is 8.6. CBC shows a white count of 5.5, hemoglobin was 8.4, platelet count is 77,000. Ferritin was 1500, iron 77, TIBC is 263, percentage saturation 33%. B12 was 182. Folic acid level is 4.2. ASSESSMENT AND PLAN Mr. David Christine is a 71-year-old with a history of radical prostatectomy in 2013 who since has not followed up with any physician. He now has evidence of widespread metastatic prostate cancer with a single lung nodule likely for the same. There is no history of colon cancer and the corroborates that. I would suspect this is all related to untreated widely metastatic prostate cancer. I had a jeremy discussion with Basil about treatment of prostate cancer, which I think would be worthwhile given that he has not even been treated with antiandrogen therapy. We discussed that given his severe deconditioning, weakness, and bony disease, he requested physical therapy evaluation and likely skin nursing placement prior to returning home with home therapy. After discussion of all the issues, he does wish to be treated. RECOMMENDATIONS Degarelix 240 mg subcutaneous as loading dose once, Zometa 4 mg IV once Unit #: [id number] #: [id number] Patient: DAVID CHRISTINE daily, PT evaluation, PSA. Thank you for allowing me to participate in his care. Dictated by... Edward Soriano/vanesa TD: 06/01/2017 08:28 JOB #: [id number] CONSULTATION REPORT Page 1 of 1 X Suhas Cazares MD X CONSULTATION REPORT
--- NOTE | ~2017-05-30 | CR206 ---
[facility] A Service of [facility] RADIOLOGY TEXT RESULTS PATIENT: DAVID CHRISTINE LOCATION: [facility] : 46 UNIT #: [id number] AGE: [address]: Mat Jorge MD SEX: M ORDER DR: [id number] [facility] [address] [place], [place] [address] [id number] E MR#: [id number] Acc #: [id number] NAME: DAVID CHRISTINE : 1945 SEX: M STUDY DATE/TIME: 05/30/2017 09:39 UNIT: [facility] ROOM: STUDY DESCRIPTION: CR Pelvis 1 or 2 Views Attending Physician: Mat Jorge M.D. Ordering Physician: Mat Jorge M.D. Primary Care Physician: Víctor Cast M.D. MEDICAL IMAGING REPORT This report is preliminary unless electronic signature is present EXAM Pelvis, 1 view, 05/30/2017, 0939 hours. CLINICAL HISTORY Patient fell this morning. Pelvic pain with shortness of air. History of prostate and colon cancer. COMPARISON Cystogram, 10/16/2012. FINDINGS Single limited view of the pelvis demonstrates no definite pelvic fracture. There is a sclerotic area involving the lesser trochanter extending into the intertrochanteric region measuring 4.4 x 4.2 cm concerning for metastasis. Minimal sclerotic change at the right at the right lesser trochanter is also seen. There is suggested increased density over the left aspect of the pubic symphysis, which could be due to overlying soft tissues, but underlying sclerotic lesion cannot be excluded. There is increased gas and stool in the colon, which limits evaluation of the iliac wings and sacrum. There is suggested sclerotic change in the lower lumbar spine. There is an area of cortical disruption at the medial acetabulum on the right, which could be due to overlapping structures; however, fracture cannot be excluded. Suggest dedicated hip films as warranted. Consider CT scan to assess for bone lesions. IMPRESSION 1. Film is limited by positioning and the increase stool and gas in the bowel. There is a definite sclerotic density over the left lesser trochanter measuring up to 4.4 cm with a smaller area over the right lesser trochanter, but concerning for metastatic disease particularly given the history of prostate cancer. There is suggested increased STS. [facility] A Service of [facility] RADIOLOGY TEXT RESULTS PATIENT: DAVID CHRISTINE LOCATION: [facility] : [birth year] UNIT #: [id number] AGE: [address]: Mat Jorge MD SEX: M ORDER DR: density in the lower lumbar spine and the upper sacrum and perhaps the right iliac wing; however, these areas are obscured by stool and gas. 2. There is suggested sclerotic density at the left parasymphyseal region. This could be due to overlying stool; however, a bone lesion cannot be excluded. 3. There is horizontal lucency at the medial right acetabulum. Presence of a fracture cannot be excluded. Correlate with site of patient's pain. If there is concern for acute right hip fracture, dedicated right hip films would be recommended. Consider further workup for metastatic disease to bone with either CT scan or followup bone scan. STAT * RESULT Dictated by... Paola Corey M.D. THIS IS AN ELECTRONICALLY VERIFIED REPORT Paola Corey M.D. at 05/30/2017 2:31 PM HELEN/akhil TD: 05/30/2017 10:11 JOB #: [id number] MEDICAL IMAGING REPORT Page 1 of 1 COPY
--- NOTE | ~2017-05-30 | XA203 ---
[facility] A Service of [facility] RADIOLOGY TEXT RESULTS PATIENT: DAVID CHRISTINE LOCATION: [facility] 576-01 : 46 UNIT #: [id number] AGE: [address]: Sebastian Park MD SEX: M ORDER DR: [id number] [address] [place], [place] [address] [id number] I MR#: [id number] Acc #: [id number] NAME: DAVID CHRISTINE : 1945 SEX: M STUDY DATE/TIME: 05/31/2017 7:17 UNIT: [facility] ROOM: [facility] STUDY DESCRIPTION: XA Thoracentesis Attending Physician: Sebastian Park M.D. Ordering Physician: Emilia Alcala M.D. Primary Care Physician: Víctor Cast M.D. MEDICAL IMAGING REPORT This report is preliminary unless electronic signature is present EXAM Ultrasound-guided left thoracentesis INDICATIONS Left pleural effusion. The risks, benefits, and alternatives of the procedure were discussed with the patient and informed consent was obtained. In the procedure room, a time out was performed confirming correct patient and procedure. All elements of maximum sterile-barrier technique utilized according to guidelines appropriate for the procedure. TECHNIQUE/FINDINGS Ultrasound of the posterior left hemithorax was performed demonstrating a small left pleural effusion. The overlying skin was prepped and draped in the usual sterile fashion. 1% lidocaine was utilized to anesthetize the skin and underlying subcutaneous tissues. Next under ultrasound guidance, a 5-Australian Yueh catheter was inserted into the pleural space on the left and 550 mL of fluid was removed and a sample was sent to the lab. The needle was removed and a sterile dressing was applied. No immediate complications. IMPRESSION Technically successful ultrasound-guided left thoracentesis. Dictated by... Leo Koroma M.D. THIS IS AN ELECTRONICALLY VERIFIED REPORT Leo Koroma M.D. at 06/03/2017 7:26 AM ARS/pcl [facility] A Service of [facility] RADIOLOGY TEXT RESULTS PATIENT: DAVID CHRISTINE LOCATION: [facility] 576-01 : [birth year] UNIT #: [id number] AGE: [address]: Sebastian Park MD SEX: M ORDER DR: TD: 05/31/2017 22:12 JOB #: [id number] MEDICAL IMAGING REPORT Page 1 of 1 COPY
--- NOTE | ~2017-05-30 | DS ---
Unit #: [id number] #: [id number] Patient: DAVID CHRISTINE [id number] [facility] [address] [place], [place] [address] [id number] MR#: [id number] NAME: DAVID CHRISTINE ROOM: 576 Age: 71 Sex: M Admission Date: 05/30/2017 : 1945 Discharge Date: 06/05/2017 Attending Physician: Jhon Tripathi M.D. Primary Care Physician: Víctor Cast M.D. DISCHARGE SUMMARY DISCHARGE DIAGNOSES Acute hypoxic respiratory failure, community acquired pneumonia, COPD exacerbation, metastatic cancer, unknown primary, underweight with emaciation and moderate protein calorie malnutrition. Hyponatremia. B12 deficiency. HOSPITAL COURSE Patient is a 71-year-old admitted to [facility] emergency department secondary to shortness of breath. Apparently, he had, had a fall as well. Patient has had a 100 pound weight loss over the past 5 years and states that he felt like it was secondary to "eating better." Upon evaluation in the emergency department, the patient was noted to have a 1.5 x 1.2 cm well-circumscribed noncalcified soft tissue nodule. There is also concern for pneumonia associated with the patient's pleural effusion and atelectasis. The patient was started on IV antibiotics. Workup was begun to evaluate the patient for this nodule. At this time, there is no tissue diagnosis, however, it is concerning for metastatic prostate cancer. On imaging, the patient was noted to have mixed foci of sclerosis and lucency throughout his visualized T-spine. Thought to be a possible combination of sclerotic and lytic metastases. The patient was noted to have multiple compression fractures. Similar findings were noted on a CT scan of the patient's lumbar spine as well. Initial plan was for CT guided biopsy of said lung mass. However, it was technically not possible given the location of the mass. Laboratory testing was sent out for PSA free, total and percent free. Concern at this time, is that the patient has metastatic process cancer. The results of this testing are pending. Patient was hypoxic upon presentation and with treatment including thoracentesis, the patient's hypoxia is much improved. He is currently sating 95% on 3 L. Given improvement in the patient's hypoxia, and control of the patient's pneumonia and wheezing secondary to COPD exacerbation the patient is being discharged home. Home O2 eval is pending, and the patient will be discharged on home oxygen if he qualifies. The patient should follow-up with Oncology for results of his testing and plan for treatment. I have had a lengthy discussion that involves the options with the patient including largely revolved around treatment versus hospice care. The Unit #: [id number] #: [id number] Patient: DAVID CHRISTINE patient states that at this time, he wishes to find out what his treatment options are prior to making any decisions. DISCHARGE MEDICATIONS 1. Combivent Respimat 1 puff q.i.d. 2. Tylenol 650 p.o. q.6 hours p.r.n. 3. Keppra 500 mg p.o. b.i.d. 4. Humibid LA 600 mg p.o. b.i.d. 5. Zocor 20 mg p.o. q.h.s. 6. Midodrine 10 mg p.o. t.i.d. 7. Multivitamin daily. 8. Aspirin 81 mg daily. 9. Naproxen 500 mg p.o. b.i.d. as needed. 10. Percocet 5/325 one p.o. q.4 hours for gwceczox-ga-lzqmvc pain. 11. Folic acid 1 mg p.o. daily. 12. Thiamine 100 mg p.o. daily. 13. Prednisone taper. 14. Vitamin B12 1000 mcg p.o. daily. 15. Omnicef 300 mg p.o. b.i.d. x4 days. FOLLOWUP The patient should follow-up with Dr. Cazares in 1-2 weeks. Additionally, the patient should follow-up with Dr. Deepak Hays in 1-2 weeks. Dictated by... Jhon Tripathi M.D. DEBORAH/izaiah TD: 06/06/2017 22:58 JOB #: [id number] DISCHARGE SUMMARY Page 1 of 1 X Jhon Tripathi MD X DISCHARGE SUMMARY
--- NOTE | ~2017-05-30 | CT57 ---
[facility] A Service of [facility] RADIOLOGY TEXT RESULTS PATIENT: DAVID CHRISTINE LOCATION: [facility] 576-01 : [birth year] UNIT #: [id number] AGE: [address]: Sebastian Park MD SEX: M ORDER DR: [id number] [place] [id number] [facility]. [place], [place] [address] [id number] I MR#: [id number] Acc #: [id number] NAME: DAVID CHRISTINE : 1945 SEX: M STUDY DATE/TIME: 05/31/2017 11:05 UNIT: [facility] ROOM: [facility] STUDY DESCRIPTION: CT Chest Wo Cont Attending Physician: Sebastian Park M.D. Ordering Physician: Angélica Green M.D. Primary Care Physician: Víctor Cast M.D. MEDICAL IMAGING REPORT This report is preliminary unless electronic signature is present EXAM Limited chest CT in preparation for lung biopsy INDICATIONS 71-year-old male with history of a pulmonary nodule. Biopsy was requested. Patient had just undergone thoracentesis. TECHNIQUE Limited CT scan was performed with the patient in the left lateral decubitus position in preparation for lung biopsy. This CT exam was performed with one or more of the following radiation dose reduction techniques: automatic exposure control, adjustment of mA and/or kV according to patient size, and iterative reconstruction. FINDINGS Patient status post thoracentesis. The pulmonary nodule, however, is now located immediately posterior and adjacent to the abdominal aorta and is not in a location that is safe to perform a percutaneous biopsy. Therefore, biopsy was not performed. Re-demonstrated is emphysema. IMPRESSION Limited CT scan performed in preparation for left lung biopsy. The nodule to be biopsied, however, is now located immediately adjacent to and posterior to the thoracic aorta. It is not in a location safe for percutaneous biopsy. Dictated by... Leo Koroma M.D. THIS IS AN ELECTRONICALLY VERIFIED REPORT [facility] A Service of [facility] RADIOLOGY TEXT RESULTS PATIENT: DAVID CHRISTINE LOCATION: [facility] 576-01 : [birth year] UNIT #: [id number] AGE: [address]: Sebastian Park MD SEX: M ORDER DR: Leo Koroma M.D. at 06/03/2017 7:25 AM ARS/pcl TD: 05/31/2017 20:43 JOB #: [id number] MEDICAL IMAGING REPORT Page 1 of 1 COPY
[~2017-05-30 09:04] MED LIST: ALBUTEROL17 GM INH; LEVAQUIN750 MG PO; LORTAB 5/500 TA1 TA1 PO; PREDNISONE PO
[2017-05-30] MEDS ORDERED: NAPROSYN-EC500 M1 PO (10:03)
[2017-05-30] MEDS ORDERED: ZOCOR PO (10:03)
[2017-05-30] MEDS ORDERED: PATIENT'S PHARMACY (10:03)
[2017-05-30] MEDS ORDERED: KEPPRA500 M2 PO (10:04)
[2017-05-30] MEDS ORDERED: NORVASC10 MG PO (10:04)
[2017-05-30] MEDS ORDERED: ASPIRIN81 M2 PO (10:04)
[2017-05-30 10:15] LABS: POC - CKMB >80.0 ng/mL (0.0-7.9); POC - TROPONIN <0.05 ng/mL (<=0.05)
[2017-05-30 10:26] LABS: BASOPHIL# 0.1 X10e3 (0-0.3); BASOPHIL% 1.4 % (0-2.5); EOSINOPHIL# 0.9 X10e3 (0-0.7); EOSINOPHIL% 15.2 % (0.0-7.0); HEMATOCRIT 27.8 % (38.0-50.0); HEMOGLOBIN 9.1 gm/dL (13.0-16.0); LYMPHOCYTE# 0.8 X10e3 (1.0-3.5); LYMPHOCYTE% 14.3 % (17.0-45.0); MEAN CELL VOLUME 90.1 FL (83-96); MEAN CORPUSCULAR HEMOGLOBIN 29.7 PG (28-34); MEAN CORPUSCULAR HGB CONC 32.9 g/dL (30-36); MEAN PLATELET VOLUME 7.7 FL (6.5-11.5); MONOCYTE# 0.3 X10e3 (0-1.0); MONOCYTE% 5.3 % (3.0-12.0); NEUTROPHIL# 3.6 X10e3 (1.5-7.1); NEUTROPHIL% 63.8 % (40-75); RED BLOOD COUNT 3.08 X10e (3.90-5.60); RED CELL DISTRIBUTION WIDTH 17.8 % (11.0-15.5); WHITE BLOOD COUNT 5.7 X10e3 (4.0-10.5)
[2017-05-30 10:30] LABS: INR 1.1
[2017-05-30 10:40] LABS: ALBUMIN SERUM 3.3 g/dL (3.5-5.0); BILIRUBIN, DIRECT 0.1 mg/dL (0.0-0.2); BILIRUBIN,INDIRECT 0.5 mg/dL (0.0-0.9); BILIRUBIN,TOTAL 0.6 mg/dL (0.2-2.0); CALCIUM SERUM 8.9 mg/dL (8.4-10.2); GLOM FILT RATE Estimated 75.9 mL/min (>60); POTASSIUM 4.8 mmol/L (3.5-5.1); PROTEIN TOTAL SERUM 6.4 g/dL (6.0-8.3)
[2017-05-30 10:52] LABS: DIFF IND YES; PLATELET COUNT 80 X10e3 (140-420)
[2017-05-30 10:54] LABS: ANISOCYTOSIS SL; NUCLEATED RED BLOOD CELL 1 /100 (0); PLATELET ESTIMATE DECREASED (NORMAL)
[2017-05-30 12:45] LABS: POC - CKMB 16.5 ng/mL (0.0-7.9); POC - TROPONIN <0.05 ng/mL (<=0.05)
[2017-05-30 14:18] LABS: MAGNESIUM 2.1 mg/dL (1.6-3.0)
[2017-05-30 14:49] LABS: PROCALCITONIN 0.14 NG/ML
[2017-05-30 17:23] LABS: FOLATE (FOLIC ACID) 4.2 ng/mL (>5.8)
[2017-05-30 18:15] LABS: HEMATOCRIT 25.8 % (38.0-50.0); HEMOGLOBIN 8.5 gm/dL (13.0-16.0)
[2017-05-30 18:35] LABS: CK TOTAL 55 IU/L (36-174)
[2017-05-31 03:19] LABS: %MB 1.6 % (0.0-4.0); MB 1.1 ng/ml
[2017-05-31 03:23] LABS: HEMATOCRIT 23.2 % (38.0-50.0); HEMOGLOBIN 7.4 gm/dL (13.0-16.0)
[2017-05-31 05:25] LABS: HEMATOCRIT 25.4 % (38.0-50.0); HEMOGLOBIN 8.4 gm/dL (13.0-16.0); MEAN CELL VOLUME 89.4 FL (83-96); MEAN CORPUSCULAR HEMOGLOBIN 29.5 PG (28-34); MEAN PLATELET VOLUME 7.4 FL (6.5-11.5); RED BLOOD COUNT 2.84 X10e (3.90-5.60); RED CELL DISTRIBUTION WIDTH 18.3 % (11.0-15.5); WHITE BLOOD COUNT 5.5 X10e3 (4.0-10.5)
[2017-05-31 06:01] LABS: ALBUMIN SERUM 3.1 g/dL (3.5-5.0); BILIRUBIN,TOTAL 0.4 mg/dL (0.2-2.0); CALCIUM SERUM 8.6 mg/dL (8.4-10.2); GLOM FILT RATE Estimated 75.9 mL/min (>60); POTASSIUM 4.3 mmol/L (3.5-5.1)
[2017-05-31 10:03] LABS: PROTEIN, BODY FLUID 3.4 gm/dL
[2017-06-02 07:04] LABS: BASOPHIL# 0.1 X10e3 (0-0.3); BASOPHIL% 1.2 % (0-2.5); EOSINOPHIL# 0.7 X10e3 (0-0.7); EOSINOPHIL% 11.8 % (0.0-7.0); HEMATOCRIT 24.3 % (38.0-50.0); HEMOGLOBIN 8.1 gm/dL (13.0-16.0); LYMPHOCYTE# 0.8 X10e3 (1.0-3.5); LYMPHOCYTE% 14.8 % (17.0-45.0); MEAN CELL VOLUME 90.1 FL (83-96); MEAN CORPUSCULAR HEMOGLOBIN 29.9 PG (28-34); MEAN CORPUSCULAR HGB CONC 33.2 g/dL (30-36); MEAN PLATELET VOLUME 7.5 FL (6.5-11.5); MONOCYTE# 0.4 X10e3 (0-1.0); MONOCYTE% 7.2 % (3.0-12.0); NEUTROPHIL# 3.7 X10e3 (1.5-7.1); PLATELET COUNT 71 X10e3 (140-420); RED BLOOD COUNT 2.69 X10e (3.90-5.60); RED CELL DISTRIBUTION WIDTH 18.1 % (11.0-15.5); WHITE BLOOD COUNT 5.7 X10e3 (4.0-10.5)
[2017-06-02 07:05] LABS: DIFF IND NO
[2017-06-02 07:21] LABS: CALCIUM SERUM 7.8 mg/dL (8.4-10.2); CREATININE SERUM 0.5 mg/dL (0.6-1.4); GLOM FILT RATE Estimated 109.8 mL/min (>60); POTASSIUM 4.3 mmol/L (3.5-5.1)
[2017-06-03 06:15] LABS: HEMATOCRIT 22.7 % (38.0-50.0); HEMOGLOBIN 7.6 gm/dL (13.0-16.0); MEAN CELL VOLUME 89.6 FL (83-96); MEAN CORPUSCULAR HEMOGLOBIN 29.8 PG (28-34); MEAN CORPUSCULAR HGB CONC 33.2 g/dL (30-36); MEAN PLATELET VOLUME 7.2 FL (6.5-11.5); RED BLOOD COUNT 2.54 X10e (3.90-5.60); RED CELL DISTRIBUTION WIDTH 18.3 % (11.0-15.5); WHITE BLOOD COUNT 5.5 X10e3 (4.0-10.5)
[2017-06-03 07:07] LABS: BUN/CREATININE RATIO 31.66; CALCIUM SERUM 6.9 mg/dL (8.4-10.2); CREATININE SERUM 0.6 mg/dL (0.6-1.4); GLOM FILT RATE Estimated 101.9 mL/min (>60)
[2017-06-04 10:51] LABS: HEMATOCRIT 23.3 % (38.0-50.0); HEMOGLOBIN 7.9 gm/dL (13.0-16.0); MEAN CORPUSCULAR HEMOGLOBIN 30.2 PG (28-34); MEAN CORPUSCULAR HGB CONC 33.9 g/dL (30-36); RED BLOOD COUNT 2.62 X10e (3.90-5.60); RED CELL DISTRIBUTION WIDTH 18.3 % (11.0-15.5); WHITE BLOOD COUNT 5.9 X10e3 (4.0-10.5)
[2017-06-05 05:41] LABS: HEMATOCRIT 23.6 % (38.0-50.0); HEMOGLOBIN 7.7 gm/dL (13.0-16.0); MEAN CELL VOLUME 89.7 FL (83-96); MEAN CORPUSCULAR HEMOGLOBIN 29.5 PG (28-34); MEAN CORPUSCULAR HGB CONC 32.9 g/dL (30-36); RED BLOOD COUNT 2.63 X10e (3.90-5.60); RED CELL DISTRIBUTION WIDTH 18.2 % (11.0-15.5); WHITE BLOOD COUNT 5.7 X10e3 (4.0-10.5)
[2017-06-05 06:02] LABS: CALCIUM SERUM 7.3 mg/dL (8.4-10.2); CREATININE SERUM 0.5 mg/dL (0.6-1.4); GLOM FILT RATE Estimated 109.8 mL/min (>60); MAGNESIUM 2.4 mg/dL (1.6-3.0); POTASSIUM 4.1 mmol/L (3.5-5.1)
[2017-06-05] MEDS ORDERED: PERCOCET5/325 PO (17:01)
[2017-06-05] MEDS ORDERED: COMBIVENT RESPIM4 GM INH (17:02)
[2017-06-05] MEDS ORDERED: PROAMATINE10 MG PO (17:02)
[2017-06-05] MEDS ORDERED: OMNICEF300 MG PO (17:03)
[2017-06-05] MEDS ORDERED: PREDNISONE10 MG PO (17:03)
[2017-06-05] MEDS ORDERED: TYLENOL325 M1 PO (17:04)
[2017-06-05] MEDS ORDERED: MUCINEX PO (17:04)
[2017-06-05] MEDS ORDERED: FOLIC ACID1 MG PO (17:05)
[2017-06-05] MEDS ORDERED: MULTI VITAMIN1 EACH PO (17:05)
[2017-06-05] MEDS ORDERED: THIAMINE HCL100 M1 PO (17:07)
[2017-06-05] MEDS ORDERED: B-121000 MC1 PO (17:17)
[2017-06-05 22:12] LABS: PSA, FREE >17.00 ng/mL (())
== END 2017-06-05 18:42 | disposition home or self-care (01) | DRG 189 ==
LOC: CED 09:04 → C5C 13:20 → CEDOF 13:20 → C5C 18:41
PROVIDERS: Emergency Medicine; Family Medicine; Internal Medicine; Internal Medicine Hematology & Oncology
PROC: B246YZZ Ultrasonography of Right and Left Heart using Other Contrast (ICD-10-PCS; principal; 2017-05-31)
PROC: 0W9B3ZZ Drainage of Left Pleural Cavity, Percutaneous Approach (ICD-10-PCS; 2017-05-31)
DX: J96.01 Acute respiratory failure with hypoxia (principal); J18.9 Pneumonia, unspecified organism; E44.0 Moderate protein-calorie malnutrition; D69.6 Thrombocytopenia, unspecified; J44.0 Chronic obstructive pulmonary disease with (acute) lower respiratory infection; E87.1 Hypo-osmolality and hyponatremia; M84.454A Pathological fracture, pelvis, initial encounter for fracture; G40.909 Epilepsy, unspecified, not intractable, without status epilepticus; J44.1 Chronic obstructive pulmonary disease with (acute) exacerbation; Z68.1 Body mass index [BMI] 19.9 or less, adult; Z53.8 Procedure and treatment not carried out for other reasons; E53.8 Deficiency of other specified B group vitamins; I10 Essential (primary) hypertension; E78.5 Hyperlipidemia, unspecified; Z85.46 Personal history of malignant neoplasm of prostate; F17.210 Nicotine dependence, cigarettes, uncomplicated; F10.10 Alcohol abuse, uncomplicated; Z80.1 Family history of malignant neoplasm of trachea, bronchus and lung; R91.8 Other nonspecific abnormal finding of lung field
CPT/HCPCS: 36415; 71010; 71250; 71260; 72128; 72131; 72170; 74177; 80048; 80053; 80076; 82042; 82308; 82550; 82553; 82607; 82728; 82746; 82947; 83540; 83550; 83605; 83615; 83735; 83880; 84153; 84154; 84157; 84484; 85014; 85018; 85025; 85027; 85610; 86850; 86900; 86901; 87040; 87070; 87205; 88108; 88305; 93005; 93306; 94640; 94760; 97110; 97116; 97162; 97166; 97530; 97535; 99285; G8978-GP; G8979-GP; G8988-GO; G8989-GO; J0456; J0696; J1650; J2250; J3010; J3420; J3489; J9155; Q9967

== ENCOUNTER 2017-07-09 02:01 | Emergency (ER) | payer MEDICARE ==
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
[~2017-07-09 02:01] MED LIST changes: +ASPIRIN81 M2 PO; +B-121000 MC1 PO; +COMBIVENT RESPIM4 GM INH; +FOLIC ACID1 MG PO; +KEPPRA500 M2 PO; +MUCINEX PO; +MULTI VITAMIN1 EACH PO; +NAPROSYN-EC500 M1 PO; +NORVASC10 MG PO; +OMNICEF300 MG PO; +PATIENT'S PHARMACY; +PERCOCET5/325 PO; +PREDNISONE10 MG PO; +PROAMATINE10 MG PO; +THIAMINE HCL100 M1 PO; +TYLENOL325 M1 PO; +ZOCOR PO
== END 2017-07-09 04:26 | disposition hospice, home (50) ==
LOC: CED 02:01 → CFTX 02:59 → CED 02:59
DX: T20.14XA Burn of first degree of nose (septum), initial encounter (principal); T31.0 Burns involving less than 10% of body surface; J44.9 Chronic obstructive pulmonary disease, unspecified; I10 Essential (primary) hypertension; F17.200 Nicotine dependence, unspecified, uncomplicated; Z79.899 Other long term (current) drug therapy; Z79.82 Long term (current) use of aspirin; X08.8XXA Exposure to other specified smoke, fire and flames, initial encounter; Y92.009 Unspecified place in unspecified non-institutional (private) residence as the place of occurrence of the external cause; Z23 Encounter for immunization
CPT/HCPCS: 36415; 71010; 90471; 90715; 99284